=== PATIENT | female | born 1930 | race Caucasian/White ===

== ENCOUNTER 2016-04-06 08:03 | Day surgery (SDC) | payer MEDICARE, OTHER ==
[2016-04-06] VITALS (14 sets, daily range): BP systolic 101–120; BP diastolic 40–60; PULSE 50–72; RESP 11–32; Ht 162.6 cm; Wt 61.1 kg
[~2016-04-06] VITALS: Ht 162.6 cm; Wt 61.1 kg
[~2016-04-06 08:03] MED LIST: SOD CHLORIDE 0.9% 1,000 ML IV ONE
[2016-04-06] MEDS ORDERED: ATOR10TA65 PO (09:03)
[2016-04-06] MEDS ORDERED: CLOP300T15 PO (09:03)
[2016-04-06] MEDS ORDERED: PANT40TA3 PO (09:03)
[2016-04-06] MEDS ORDERED: ISOS30TA5 PO (09:03)
[2016-04-06 09:08] LABS: HEMATOCRIT 26.9 % (37.0-47.0); HEMOGLOBIN 8.8 g/dl (12.0-16.0); MEAN CORPUSCULAR HEMOGLOBIN 27.4 pg (29.0-33.0); MEAN CORPUSCULAR HGB CONC 32.9 g/dl (32.0-37.0); MEAN CORPUSCULAR VOLUME 83.3 fl (82.0-101.0); MEAN PLATELET VOLUME 8.8 fl (7.4-10.4); PLATELET COUNT 223 10^3/UL (140-440); RED BLOOD COUNT 3.22 10^6/ul (4.20-5.40); RED CELL DISTRIBUTION WIDTH 17.7 % (11.5-14.5); UNCORRECTED WBC 5.7 10^3/ul (4.8-10.8); WHITE BLOOD COUNT 5.7 10^3/ul (4.8-10.8)
[2016-04-06 09:15] LABS: INR 1.03; PROTIME 13.5 Sec (12.2-14.2); PT RATIO 1.1
[2016-04-06 09:16] LABS: PARTIAL THROMBOPLASTIN TIME 28.4 Sec (25.0-35.0)
[2016-04-06 09:17] LABS: CONDITION 1; LH ANALYZER COMMENTS 1; SUSPECT 1
[2016-04-06 09:27] LABS: POTASSIUM 3.7 mmol/L (3.5-5.1)
[2016-04-06 09:29] LABS: CALCIUM 9.7 mg/dl (8.4-10.2); CREATININE 0.85 mg/dl (0.44-1.00)
[2016-04-06] MEDS ORDERED: MIDAZOLAM 1 MG/ML 2 ML INJ ONE (09:40)
[2016-04-06] MEDS ORDERED: FENTAnyl 50 MCG/ML VIAL ONE (09:40)
[2016-04-06] MEDS ORDERED: IODIXANOL LOCM 100 ML BTL ONE (09:40)
[2016-04-06] MEDS ORDERED: LIDOCAINE 1% (MDV) 20 ML INJ ONE (09:40)
[2016-04-06] MEDS ORDERED: HEPARIN 1000 UNITS/ML 10 ML INJ ONE (09:40)
[2016-04-06] MEDS ORDERED: NITROGLYCERIN (IC) 100 MCG/ML INJ ONE (09:41)
[2016-04-06] MEDS ORDERED: VERAPAMIL 5 MG INJ ONE (09:41)
--- NOTE | 2016-04-06 10:42 | PDOCDIS ---
Discharge Instructions CONDITION Patient Condition: Good HOME CARE INSTRUCTIONS: Diet Instructions: Low Fat /Cholesterol ACTIVITY: Activity Restrictions: Avoid heavy lifting (No lifting more then 5 pounds with left arm x 3 days) [address] (x 1 day) FOLLOW UP/APPOINTMENTS Appointments Follow up with primary doctor/GI secondary to anemia. El Myles DO Apr 06, 2016 10:42
[2016-04-06] MEDS ORDERED: SOD CHLORIDE 0.9% 1,000 ML IV SCH (10:48)
[2016-04-06 12:45] LABS: BASOPHIL # 0.1 10^3/ul (0.0-0.1); EOSINOPHILS # 0.1 10^3/ul (0.0-0.5); LYMPHOCYTES # 2.1 10^3/ul (0.8-2.9); MONOCYTE # 0.9 10^3/ul (0.3-0.9); NEUTROPHIL # 2.5 10^3/ul (1.6-7.5)
--- NOTE | 2016-04-06 17:53 | CARRPT ---
DATE OF PROCEDURE: 04/06/2016 PROCEDURE: 1. Left heart catheterization. 2. Right and left coronary angiogram. 3. Interpretation and supervision of right and left coronary angiogram. 4. Left radial artery approach. PATIENT HISTORY: This is an 85-year-old female who presents with unstable angina and abnormal stress test. FINDINGS: Aortic pressure 124/57. CORONARY ANATOMY: 1. Left main is a large caliber vessel with no significant disease. 2. Circumflex is a large caliber vessel and is dominant. There is a proximal 20% stenosis, a mid 10% stenosis, a distal 10% stenosis. 3. LAD is a medium to large caliber vessel with a mid 30 to 40% stenosis and a distal 20% stenosis. 4. RCA is a small to medium caliber vessel and is nondominant. There is a proximal to mid 30% stenosis, distal 10% stenosis. DESCRIPTION OF PROCEDURE: The patient was brought to the laboratory tester after informed consent. The patient was prepped and draped as per protocol. Left radial access was obtained using ultrasound guidance. A 5/6 [place] sheath was placed in the left radial artery. A 5-[place] JL3.5 diagnostic catheter was used to engage the left main. Angiogram was performed. Next used a 5-[place] JR4 catheter to engage the RCA. Angiogram of RCA was performed. There was significant calcification noted of the aortic root. Given the wire would not cross easily after initial attempt, no further attempts were made to enter into the left ventricle. There were no immediate complications. All catheters and wires were removed. DIAGNOSIS: Mild to moderate coronary artery disease. COMPLICATIONS: None. BLOOD LOSS: Minimal. RECOMMENDATIONS: 1. Medical management. 2. Anemia workup and treatment. Findings were discussed with the patient and family. Dictated By: NICOLAS SEAMAN/ADELE Conf#: [id number] DID#: [id number] MTDD
== END 2016-04-06 14:33 | disposition home or self-care (01) ==
LOC: SDS 08:03
PROVIDERS: ATTEND Internal Medicine Cardiovascular Disease
DX: I25.110 Atherosclerotic heart disease of native coronary artery with unstable angina pectoris (principal); R94.39 Abnormal result of other cardiovascular function study; E78.5 Hyperlipidemia, unspecified
CPT/HCPCS: 80048; 85025; 85610; 85730; 93458; C1769; C1887; J1644; J2250; J3010; Q9967